=== PATIENT | male | born 1955 | race Caucasian/White ===

== ENCOUNTER → 2020-07-16 13:54 | Outpatient (BNVA) | payer OTHER, SELFPAY | PROVIDERS: PCP Internal Medicine; Visit Provider Internal Medicine Gastroenterology ==

== ENCOUNTER → 2021-08-28 13:59 | Outpatient (BNVA) | payer OTHER, SELFPAY | PROVIDERS: PCP Internal Medicine; Visit Provider Internal Medicine Gastroenterology | DX: K21.9 Gastro-esophageal reflux disease without esophagitis (principal); D68.61 Antiphospholipid syndrome; Z86.010 Personal history of colon polyps; Z79.01 Long term (current) use of anticoagulants; Z79.899 Other long term (current) drug therapy | CPT/HCPCS: 99212 ==

== ENCOUNTER 2022-06-08 09:09 | Day surgery (SDC) | payer OTHER, SELFPAY ==
[2022-06-02 15:54] VITALS: BMI 31.5
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
--- NOTE | 2022-06-08 10:20 | MHC.SHP ---
Pre-Procedural Eval Section A Date of Service: 06/08/22 The patient is an INPATIENT: No The History & Physical has been completed within 30 days and I have reviewed it.: No Section B Chief Complaint: Personal history of colonic polyps Details of Present Illness: colon cancer screening, history of colon polyps Relevant Family History (Specify if Yes): No Relevant Social History: None Present Medications: see Short Stay Collaborative assessment Medical History: Significant History ( hypertension, CKD stage 2, antiphospholipid syndrome on chronic anticoagulation) History of Previous Operations: Relevant previous surgery/procedure and date(s) (Hx of colonoscopy Hx of esophagogastroduodenoscopy) Allergies: Allergies Allergy/AdvReac Type Severity Reaction Status Date / Time diclofenac [DICLOFENAC] Allergy Severe ANAPHYLAXIS Verified 06/08/22 10:12 metronidazole [METRONIDAZOLE] Allergy Severe ANAPHYLAXIS Verified 06/08/22 10:12 sodium bicarbonate Allergy Severe Anaphylaxis Verified 06/08/22 10:12 [SODIUM BICARBONATE] latex [LATEX] AdvReac Severe BLOOD CLOTS Verified 06/08/22 10:12 Review of Systems Sugical H&P ROS: Negative: Constitution, Cardiovascular, Respiratory and Gastrointestinal Exam Surgical H&P Exam: Normal: Heart, Normal: Lungs, Normal: Extremities and Normal: Abdomen Plan Diagnosis/Plan: Unchanged I have reviewed the history and physical and performed a pertinent physical examination on my patient. No changes have occurred unless specified. Time Spent With Patient Time: Total time managing care of this patient today ____ minutes.
[2022-06-08 10:21] VITALS: BP 120/71; PULSE 60; RESP 16; TEMP 36.6; O2SAT 98
[2022-06-08] MEDS: Lactated Ringers 1,000 ML 100 ML IVCONT (10:43)
--- NOTE | 2022-06-08 10:53 | PC.NURSE ---
Patient in preop. 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 At rest, cotton stomper reading SB in the mid 50's. Diagnosis of bradycardia documented by primary care provider (note in chart). When questioned, patient stated Oh yes I have low heart rate. Sometimes when I am sleeping it dips to the 30's . No documented EKG on file. Dr. Knowles made aware. No new orders at this time. Okay to proceed with procedure.
--- NOTE | 2022-06-08 10:55 | W.PM.OPN ---
Operative Note Operative Note Date of Service: 06/08/22 Narrative: COLONOSCOPY TILL CECUM WITH SNARE POLYPECTOMY Pre-op diagnosis: Colon cancer screening, history of colon polyps Post-op diagnosis:? colon polyps, diverticulosis, hemorrhoids Endoscopist:? Amarilys Hernández MD Anesthesia:?MAC Consent: Indications for the procedure and potential complications of bleeding, perforation, reaction to medications and missed diagnosis were discussed with the patient and informed consent was obtained. Instrument: Olympus PCF H 190 L variable stiffness pediatric colonoscope Monitoring: Vital signs and clinical assessment, intermittent blood pressure monitoring, continuous EKG monitoring, Pulse oximetry and Carbon Dioxide monitoring were done throughout the procedure. Please see anesthesia flowsheet. Colon withdrawl time was 24 minutes. Procedure: The patient was placed in the left lateral decubitis position and pre-procedure medications were administered. After a digital rectal examination of the ano-rectum, the video colonoscope was inserted into the rectum and advanced through the colon to the cecum. The colonoscope was slowly withdrawn in a retrograde panoramic fashion and the colon mucosa was carefully examined including a retroflexed view of the rectum. Findings and interventions are described below. Procedure Difficulty: Without difficulty Findings: Terminal Ileum: Not evaluated Cecum: Partially evaluated due to suboptimal prep Ascending Colon: A 10 mm sessile polyp in the proximal ascending colon - removed with a cold snare. Colon partially evaluated due to suboptimal prep. Transverse Colon: Partially evaluated due to suboptimal prep Descending Colon: Moderate diverticulosis Sigmoid Colon: Moderate diverticulosis Rectum: A 7-8 mm sessile polyp removed with a cold snare Ano-rectum: Moderate internal hemorrhoids Colon preparation: Good in the left colon after copious irrigation and Fair to poor in the transverse and right colon with a layer of adherent stools and scattered solid stool balls.. Impression and Post Procedure Diagnosis: Colonoscopy Findings: Two small to medium sized polyps removed Moderate diverticulosis seen in the left colon Moderate hemorrhoids on retroflexed exam. Plan: Await pathology results Patient has an appointment on 07/23/22 in the GI Clinic with Amarilys Hernández M.D. Repeat Colonoscopy interval based on path results - in 3 years if polyps are adenomatous and due to suboptimal prep in the right colon (needs 2 day prep of bisacodyl daily x 5 days before colonoscopy appt). Above findings were reviewed with the patient and colon polyps handout was given in the discharge area
[2022-06-08 11:40] VITALS: BP 96/50; PULSE 51; RESP 16; TEMP 36.9; O2SAT 97
[2022-06-08 11:55] VITALS: BP 113/63; PULSE 53; RESP 16; TEMP 36.9; O2SAT 98
[2022-06-08 12:10] VITALS: BP 114/62; PULSE 53; RESP 16; TEMP 36.9; O2SAT 98
== END 2022-06-08 12:42 | disposition home or self-care (01) ==
PROVIDERS: PCP Family Medicine Adult Medicine; Visit Provider Internal Medicine Gastroenterology
PROC: 0DJD8ZZ Inspection of Lower Intestinal Tract, Via Natural or Artificial Opening Endoscopic (ICD-10-PCS; CPT 45378; principal; 2022-06-08 11:00)
DX: Z12.11 Encounter for screening for malignant neoplasm of colon (principal); Z86.010 Personal history of colon polyps; K63.5 Polyp of colon; K62.1 Rectal polyp; K57.30 Diverticulosis of large intestine without perforation or abscess without bleeding; K64.8 Other hemorrhoids; K59.00 Constipation, unspecified; K21.9 Gastro-esophageal reflux disease without esophagitis; D68.61 Antiphospholipid syndrome; I12.9 Hypertensive chronic kidney disease with stage 1 through stage 4 chronic kidney disease, or unspecified chronic kidney disease; N18.2 Chronic kidney disease, stage 2 (mild); M79.7 Fibromyalgia; M54.50 Low back pain, unspecified; G47.33 Obstructive sleep apnea (adult) (pediatric); Z79.01 Long term (current) use of anticoagulants; Z79.82 Long term (current) use of aspirin; Z79.899 Other long term (current) drug therapy; Z88.8 Allergy status to other drugs, medicaments and biological substances; Z91.040 Latex allergy status; Z86.16 Personal history of COVID-19
CPT/HCPCS: 45385; 88300; 88305

== ENCOUNTER → 2022-07-30 10:34 | Outpatient (BNVA) | payer OTHER, SELFPAY | PROVIDERS: PCP Family Medicine Adult Medicine; Visit Provider Internal Medicine Gastroenterology | DX: K21.9 Gastro-esophageal reflux disease without esophagitis (principal); K80.20 Calculus of gallbladder without cholecystitis without obstruction; Z86.010 Personal history of colon polyps | CPT/HCPCS: 99212 ==

== ENCOUNTER 2023-09-24 09:16 | Outpatient (AMB) | payer OTHER, SELFPAY ==
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
[2023-09-24 09:29] VITALS: BP 108/59; PULSE 59; BMI 33.0
== END 2023-09-24 10:45 | disposition home or self-care (01) ==
PROVIDERS: PCP Family Medicine Adult Medicine; Visit Provider Internal Medicine Gastroenterology
DX: K80.20 Calculus of gallbladder without cholecystitis without obstruction (principal); K21.9 Gastro-esophageal reflux disease without esophagitis; Z86.010 Personal history of colon polyps; Z79.01 Long term (current) use of anticoagulants
CPT/HCPCS: 99213

== ENCOUNTER → 2023-09-24 09:16 | Outpatient (BNVA) | payer OTHER, SELFPAY | PROVIDERS: PCP Family Medicine Adult Medicine; Visit Provider Internal Medicine Gastroenterology | DX: K21.9 Gastro-esophageal reflux disease without esophagitis (principal); K80.20 Calculus of gallbladder without cholecystitis without obstruction; Z86.010 Personal history of colon polyps; Z79.01 Long term (current) use of anticoagulants | CPT/HCPCS: 99212 ==

== ENCOUNTER 2024-09-21 09:20 | Outpatient (AMB) | payer MEDICARE, MEDICAID, SELFPAY ==
--- OUTSIDE RECORDS SUMMARY | 2024-01-28 07:30 | XMS_ITS | Encounter Summary ---
Author Name [facility] [place] [facility] [place] Address [address] [place] [address] Care Team Providers Care Receivable Executive Name Role Phone JOSÉ SCHULTZ Primary Care Provider Unavailabl e Insurance Providers: All historical and current Section Date Range: From patient's date of to the date document was created. This section includes the names of all active insurance providers for the patient. Insurance Provider Type of Coverage Plan Name Start of Policy Coverage End of Policy Coverage Group Number Member ID Insurance Provider's Telephone Number Policy Wallace's Name Patient's Relationship to Policy Wallace [facility] (MEDICAID) MEDICAID PREMI UM GO SAI Jan 23, 2011 05 [id number] JUDITH MARIELLE ALYN PATIENT MEDICAID MEDICAID [facility] EASELECT MEDICAL [facility] STAND RUPESH Mar 08, 2011 MEDICAI D [id number] JUDITH MARIELLE ALYN PATIENT MEDICARE (WNR) MEDICARE (M) PART A Nov 06, 2012 PART A [id number] FRANCISCASHARAD ALY ALAN PATIENT MEDICARE (WNR) MEDICARE (M) PART B Nov 06, 2012 PART B [id number] JUDITH MARIELLE ALYN PATIENT MEDICARE (WNR) MEDICARE (M) PART A Nov 06, 2012 PART A [id number] ARSLAN STANTON PATIENT MEDICARE (WNR) MEDICARE (M) PART B Nov 06, 2012 PART B [id number] [phone] [id number] ARSLAN STANTON PATIENT MEDICARE (WNR) MEDICARE (M) PART A Nov 06, 2012 PART A [id number] ARSLAN STANTON PATIENT MEDICARE (WNR) MEDICARE (M) PART A Nov 06, 2012 PART A [id number] ARSLAN STANTON PATIENT MEDICARE (WNR) MEDICARE (M) PART B Nov 06, 2012 PART B [id number] ARSLAN STANTON PATIENT MEDICARE (WNR) MEDICARE (M) PART B Nov 06, 2012 PART B [id number] ARSLAN STANTON PATIENT MEDICARE (WNR) MEDICARE (M) PART A Nov 06, 2012 PART A [id number] [phone] [id number] ARSLAN STANTON PATIENT MEDICARE (WNR) MEDICARE (M) PART B Nov 06, 2012 PART B [id number] [phone] [id number] ARSLAN STANTON PATIENT FOR LIFE TFL* Mar 08, 2017 [id number] TRACY GRIFFIN PATIENT FOR LIFE SUPPLEMEN NOHEMY TFL Mar 08, 2017 FOR LIFE [id number] ARSLAN STANTON PATIENT Selected Encounter This section includes the information on record at [place] for the Encounter. Date/Time Encounter Type Encounter Description Reason Provider Source Jan 28, 2024 11:30 AM CPTR OPHTH DX IMG POST SEGMT OPTOMETRY ICD-10-CM M32.9 Systemic lupus erythematosus, unspecified JAIME BEAR Encounter Template Text not used by [facility] Assessments - Encounter Diagnoses This section includes the primary and secondary diagnoses documented for the Encounter. Date/Time Primary/Secondary Diagnosis Diagnosis Name Provider Source Jan 28, 2024 01:55 PM PRIMARY Systemic lupus erythematosus, unspecified [facility] Jan 28, 2024 01:55 PM SECONDARY Open angle with borderline findings, low risk, bilateral [facility] BE[facility] Jan 28, 2024 01:55 PM SECONDARY Other long-term (current) drug therapy JAIME BEAR [facility] Plan of Treatment: Future Appointments (+ 6 months) and Future Tests (+/- 45 days) The Plan of Treatment section includes future care activities for the [facility] [place] [facility] This section includes future appointments and future orders which are active, pending or scheduled. Future Appointments This section includes appointments that were scheduled to occur 6 months from the date of the Encounter, up to a maximum of 20 appointments. The data comes from all [place] treatment facilities. Appointment Date/Time Appointment Type Appointme nt Facility Name July 26, 2024 08:30 AM AMBULATORY - MEDICINE [facility] July 27, 2024 01:30 PM AMBULATORY - MEDICINE [facility] July 27, 2024 01:30 PM AMBULATORY - MEDICINE [facility] Lab Results: +/- 30 days of the encounter This section includes the Chemistry and Hematology Lab Results on record with [place] for the patient. Radiology Reports and Pathology Reports are provided separately, in subsequent sections. Lab Results This section contains the Chemistry/Hematology Results that were resulted 30 days before or 30 daysafter the date of the Encounter. Date/Time Source Result Type Result - Unit Interpretation Reference Range Specimen Type Comment Jan 28, 2024 10:52 AM [facility] TESTOSTERONE, TOTAL (WHV) SERUM Specimen Type : SERUM No comment entered. Ordering Provider: JOSÉ SCHULTZ Report Released Date/Time: Jul 02, 2023 01:52 PM Reporting Lab: [address] [address] Performing Lab: [address] [address] TESTOSTERONE, TOTAL (WHV) 265.71 ng/dL 2 20.00-892.00 Jan 28, 2024 10:52 AM [facility] PSA SERUM Specimen Type: SERUM No comment entered. Ordering Provider: JOSÉ SCHULTZ Report Released Date/Time: Jul 02, 2023 01:52 PM Reporting [facility] [address] [address] Performing Lab: [address] [address] PSA 1.07 ng/mL 0.00-4.00 Jan 28, 2024 10:52 AM [facility] TSH SERUM Specimen Type: SERUM No comment entered. Ordering Provider: JOSÉ SCHULTZ Report Released Date/Time: Jul 02, 2023 01:52 PM Reporting Lab: [facility] [address] [address] Performing Lab: [address] [address] TSH 1.73 u[IU]/mL 0.35-5.00 Jan 28, 2024 10:52 AM [facility] HEMOGLOBIN A1C PANEL BLOOD Specimen Type: BLO OD Comment: Values obtained from A1C measurements can vary. For atypical A1C assays, a reported value of 7.0 could actually be between 6.72 and 7.28 if measured by a reference method. A reported value of 9.0 could actually be between 8.73 and 9.27. Ref: http://www.ngsp.org/CAPdata.asp Ordering Provider: JOSÉ SCHULTZ Report Released Date/Time: Jul 02, 2023 01:52 PM Reporting Lab: [facility] [address] [address] Performing Lab: [address] [address] HEMOGLOBIN A1C 6.8 H 4.0-5.6 Jan 28, 2024 10:52 AM [facility] LIPID PANEL, NON FASTING SERUM Specimen Type: SERUM No comment entered. Ordering Provider: JOSÉ SCHULTZ Report Released Date/Time: Jul 02, 2023 01:52 PM Reporting Lab: [facility] [address] [address] Performing Lab: [facility] [address] [address] CHOLESTEROL 136 mg/dL TRIGLYCERIDE 236 mg/dL H 0-150 LDL calculated 49 mg/dL 0-129 CHOL/HDL 3.4 HDL CHOLESTEROL 40 mg/dL 40-60 Jan 28, 2024 10:52 AM [facility] BASIC METABOLIC PANEL (non-fasting) SERUM Spe cimen Type: SERUM No comment entered. Ordering Provider: JOSÉ SCHULTZ Report Released Date/Time: Jul 02, 2023 01:52 PM Reporting Lab: [facility] [address] [address] Performing Lab: [address] [address] UREA NITROGEN 14 mg/dL 7-25 GLUCOSE 111 mg/dL H 65-100 SODIUM 137 mmol/L 135-145 POTASSIUM 4.0 mmol/L 3.5-5.0 CHLORIDE 102 mmol/L 100-110 CO2 24 meq/L 20-30 CREATININE, Serum 0.94 mg/dL 0.50-1.40 eGFR(CKD-EPI 2020) 88 mL/min >60 Jan 28, 2024 10:52 AM [facility] LIVER FUNCTION SERUM Specimen Type: SERUM No comment entered. Ordering Provider: JOSÉ SCHULTZ Report Released Date/Time: Jul 02, 2023 01:52 PM Reporting Lab: [facility] [address] [address] Performing Lab: [address] [address] PROTEIN,TOTAL 6.8 g/dL 6.0-8.3 ALBUMIN 4.0 g/dL 3.5-5.0 ALKALINE PHOSPHATASE 62 U/L 40-150 AST 33 U/L 5-34 ALT 37 U/L BILIRUBIN, TOTAL 0.7 mg/dL 0.2-1.2 Jan 28, 2024 10:52 AM [facility] CBC AND DIFF (AUTO) BLOOD Specimen Type: BLOO D No comment entered. Ordering Provider: JOSÉ SCHULTZ Report Released Date/Time: Jul 02, 2023 01:52 PM Reporting Lab: [facility] [address] [address] Performing Lab: [facility] [address] [address] WBC 5.60 10*3/uL 4.50-11.00 RBC 4.97 10*6/uL 4.23-5.66 HGB 15.7 g/dL 12.8-17 HCT 44.9 39.2-50.4 MCV 90.3 fL 82-99 MCHC 35.0 g/dL 30.8-35.1 PLT 161 10*3/uL 140-360 RDW-CV 13.7 12.0-16.0 MONO, ABS 0.46 10*3/uL 0.30-1.10 MCH 31.6 pg 26.2-32.6 NEUT % 45.7 43.7-75.8 LYMPH % 44.1 H 14.0-42.3 MONO % 8.2 5.1-13.7 EOS % 1.4 0.4-6.8 BASO % 0.4 0.1-2.0 NEUT, ABS 2.56 10*3/uL 2.20-7.60 LYMPH, ABS 2.47 10*3/uL 1.00-3.20 EOS, ABS 0.08 10*3/uL 0.03-0.44 BASO, ABS 0.02 10*3/uL 0.01-0.13 IMMATURE GRAN % 0.2 0.0-0.7 IMMATURE GRAN, ABS 0.01 10*3/uL 0.00-0.0 6 NRBC % 0.0 0.0-0.0 NRBC, ABS 0.00 10*3/uL 0.00-0.00 Advance Directives: All historical and current Section Date Range: From patient's date of to the date document was created. This section includes ALL of a patient's completed or amended [place] Advance and Rescinded Directives. The entries below indicate that a directive exists for the patient, but an actual copy is not included with this document. The data comes from all [place] facilities. Date Advance Directives Provider Source Apr 22, 2016 ADVANCE DIRECTIVE HIPOLITO MARLEY [facility] Mar 06, 2016 [facility] Encounter Notes: All associated encounter notes This section contains the clinical notes associated to the Encounter. Date/Time Encounter Note(s) Provider Source Jan 28, 2024 11:45 AM OPTOMETRY CONSULT: LOCAL TITLE: CONSULT REPORT/OPTOMETRY OCT STANDARD TITLE: OPTOMETRY CONSULT DATE OF NOTE: JAN 28, 2024@11:45 ENTRY DATE: JAN 28, 2024@11:45:35 AUTHOR: JAIME BEAR EXP COSIGNER: URGENCY: STATUS: COMPLETED S: Review of Macular OCT of patient on plaquenil for lupusO: RNFL OCT ran by dye penetrant testing technician A: OCT of right eye shows normal macular architecture and thinning with normal foveal contour. OCT of left eye shows normal macular architecture and thinning with normal foveal contour. P: Keep follow-up as scheduled, ed re today's findings. [place] repeated back the plan and education. S: Review of RNFL OCT of patient considered low-risk open angle glaucoma OU suspect secondary to moderate cupping OU O: RNFL OCT ran by dye penetrant testing technician A: OCT of right eye shows all quadratns WNL, disc area of 2.14, average CDR of 0.61 and vertical CDR of 0.60, average RNFL thickness of 83 m. OCT of left eye shows all quadrants WNL, disc area of 2.09, average CDR of 0.55 and vertical CDR of 0.54, average RNFL thickness of 86 m. RNFL symmetry 88%. P: Keep follow-up as scheduled, ed re today's findings. repeated back the plan and education. /yahaira/ JAIME BEAR, OD PRODUCTION MAINTENANCE MECHANIC Signed: 01/28/2024 14:04 JAIME BEAR [place] [facility]
--- OUTSIDE RECORDS SUMMARY | 2024-09-21 09:37 | XMS_ITS | Clinical Summary ---
Author Organization [facility] Address [address] [place] [address] Care Team Providers Care Shredded Filler Cigar Maker Machine Name Role Phone Ulises Burgos DO Primary Care Provider Unavailable Ulises Burgos DO Unavailable Unavai lable Allergies Active Allergy Reactions Criticality Noted Date Comments Latex 05/30/2009 Lovenox 05/30/2009 Medications Fondaparinux Sodium (Arixtra) 10 MG/0.8ML Solution INJECT 10 Micrograms Daily mcg 0 0 Active Divalproex Sodium (Depakote) 500 MG EC tablet TAKE 1 TABLET TWICE DAILY. 0 0 Active Metoprolol Tartrate (Lopressor) 50 MG tablet TAKE 1 TABLET DAILY. 0 0 Active Fish Oil (FISH OIL) 1000 MG Cap Take 1 capsule twice daily 0 0 Active raNITIdine HCl (Taladine) 150 MG capsule TAKE 1 CAPSULE TWICE DAILY. 0 0 Active Cyclobenzaprine HCl (FLEXERIL) 10 MG tablet TAKE 1 TABLET 3 TIMES DAILY NEEDED. 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 Immunizations Immunization Administration Dates Next Due Influenza (SEASONAL) - 12/29/2006 Social History Tobacco Use Types Packs/Day Years Used Date Smoking Tobacco: Never Assessed Sex and Gender Information Value Date Recorded Sex Assigned at Not on file Legal Sex Male 6:35 PM EDT Gender Identity Not on file Sexual Orientation Not on file Last Filed Vital Signs Vital Sign Reading Time Taken Comments Blood Pressure 130/80 08/23/2009 11:43 AM EDT Pulse 80 08/23/2009 11:43 AM EDT Temperature - - Respiratory Rate - - Oxygen Saturation - - Inhaled Oxygen Concentration - - Weight 103 kg (225 lb 15.9 oz) 08/23/2009 11:43 AM EDT Height - - Body Mass Index - - Plan of Treatment Health Maintenance Due Date Last Done Comments Hepatitis C Screening 1955 DTaP/Tdap/Td (1 - Tdap) 09/01/1973 Pneumococcal 50+ years (1 of 1 - PCV) 09/01/2005 Zoster (Shingrix) (1 of 2) 09/01/2005 COVID-19 Vaccine ( - 2023-2 5 season) 2023 Influenza (#1) 2024 12/29/2006 RSV (1 - 1-dose 75+ series) 09/01/2030 Abdominal Aorta Imaging Discontinued HPV Vaccine Aged Out No longer eligi ble based on patient's age to complete this topic Hep A Aged Out No longer eligi ble based on patient's age to complete this topic Hep B Aged Out No longer eligi ble based on patient's age to complete this topic Hib Aged Out No longer eligi ble based on patient's age to complete this topic Meningococcal ACWY Aged Out No longer eligible based on patient's age to complete this topic Zoster (Zostavax) Discontinued Care Teams Shredded Filler Cigar Maker Machine Relationship Specialty Start Date End Date Ulises Burgos DO PCP - General 10/12/22 Ulises Burgos DO PCP - Backup PCP Family Medicine 04/07/23
--- OUTSIDE RECORDS SUMMARY | 2024-09-21 09:37 | XMS_ITS | Clinical Summary ---
Author Organization [facility] Address [address] [place] [address] Care Team Providers Care Athletics Director Name Role Phone Unknown Primary Care Provider [phone] Social History Tobacco Use Types Packs/Day Years Used Date Smoking Tobacco: Never Assessed Sex and Gender Information Value Date Recorded Sex Assigned at Not on file Legal Sex Male 1:26 PM EDT Gender Identity Not on file Sexual Orientation Not on file Plan of Treatment Health Maintenance Due Date Last Done Comments Hepatitis C Virus Screening 1955 DTaP/Tdap/Td Vaccines (1 - Tdap) 09/01/1974 Colonoscopy 09/01/2000 Pneumococcal Vaccines 50+ (1 of 1 - PCV) 09/01/2005 Zoster (Shingles) Vaccine (1 of 2) 09/01/2005 COVID-19 Vaccine ( - 2023-2 5 season) 2023 Influenza Vaccine 10/06/2024 RSV Vaccine 60 years and old er and Patients (1 - 1-dose 75+ series) 09/01/2030 Hepatitis B Vaccines Aged Out No long er eligible based on patient's age to complete this topic Insurance MEDICARE PART A & B [facility] [employer] [place] [address] FEE BASIS 16 F,ATTN:RAMAN SCHWARZ, [place] [id number] Care Teams Athletics Director Relationship Specialty Start Date End Date Unknown Unknow Provider Address PCP - General 11/13/19
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
[2024-09-21 10:05] VITALS: BP 104/59; PULSE 82; O2SAT 97; BMI 31.6
== END 2024-09-21 10:45 | disposition home or self-care (01) ==
LOC: HO.HGI 09:21
PROVIDERS: PCP Family Medicine Adult Medicine; Referring Provider Internal Medicine Gastroenterology; Visit Provider Internal Medicine Gastroenterology
DX: K21.9 Gastro-esophageal reflux disease without esophagitis (principal); K80.20 Calculus of gallbladder without cholecystitis without obstruction; Z86.0100 Personal history of colon polyps, unspecified
CPT/HCPCS: 99213

== ENCOUNTER → 2024-09-21 09:20 | Outpatient (BNVA) | payer OTHER, SELFPAY | PROVIDERS: PCP Family Medicine Adult Medicine; Visit Provider Internal Medicine Gastroenterology | DX: K21.9 Gastro-esophageal reflux disease without esophagitis (principal); K80.20 Calculus of gallbladder without cholecystitis without obstruction; Z86.0100 Personal history of colon polyps, unspecified | CPT/HCPCS: 99212 ==